=== PATIENT | male | born 1940 | race Caucasian/White ===

== ENCOUNTER 2018-06-19 06:30 | Observation (INO) | payer MEDICARE ==
[2018-06-18 09:01] LABS: BASOPHILS % 0.4 % (0.0-1.0); EOSINOPHILS # (AUTO) 0.2 (0.0-0.4); EOSINOPHILS % 1.9 % (0.0-6.0); HEMATOCRIT 34.8 % (38.2-49.6); HEMOGLOBIN 11.4 g/dL (14.0-18.0); LYMPHOCYTES # (AUTO) 2.3 (1.0-3.2); LYMPHOCYTES % 21.8 % (18.0-39.1); MEAN CORPUSCULAR HEMOGLOBIN 30.6 pg (28-32); MEAN CORPUSCULAR HGB CONC 32.8 g/dL (31-35); MEAN CORPUSCULAR VOLUME 93.3 fL (81-99); MONOCYTES # (AUTO) 0.7 (0.2-0.8); MONOCYTES % 6.8 % (4.4-11.3); NEUTROPHILS # (AUTO) 7.1 (2.1-6.9); NEUTROPHILS % 68.2 % (38.7-80.0); PLATELET COUNT 254 x10e3/uL (140-360); RED BLOOD COUNT 3.73 x10e6/uL (4.3-5.7)
[2018-06-18 09:19] LABS: ANION GAP 13.5 mmol/L (8-16); BLOOD UREA NITROGEN 29 mg/dL (7-26); BUN/CREATININE RATIO 26 (6-25); CALCIUM 9.8 mg/dL (8.4-10.2); CARBON DIOXIDE 25 mmol/L (22-29); CHLORIDE 106 mmol/L (98-107); CREATININE, SERUM 1.11 mg/dL (0.72-1.25); EST GLOMERULAR FILTRATION RATE > 60 ML/MIN (60-); GLUCOSE 80 mg/dL (74-118); POTASSIUM 4.5 mmol/L (3.5-5.1); SODIUM 140 mmol/L (136-145)
--- NOTE | 2018-06-18 09:22 | Diagnostic Imaging Report ---
PROCEDURE: X-RAY CHEST, TWO VIEWS COMPARISON: None. INDICATIONS: pre-operative chest/urinary retention FINDINGS: LUNGS: No consolidations or edema. PLEURA: No effusions or pneumothorax. HEART \T\ MEDIASTINUM: The heart is within normal size-limits. BONES \T\ SOFT TISSUES: No acute findings. CONCLUSION: No acute thoracic abnormality. Dictated by: Gregg Avila M.D. on 06/18/2018 at 9:28 Electronically approved by: Gregg Avila M.D. on 06/18/2018 at 9:28
[~2018-06-19] VITALS: Ht 172.7 cm; Wt 81.2 kg
[~2018-06-19 06:30] MED LIST: GABAPENTIN300 MG PO; HUMALOG100 UNIT/2 SQ; K-DUR20 ME2; LANTUS100 UNIT/2 SQ; LISINOPRIL10 MG PO; Z.0.AMLODIPINE BESYL PO; Z.0.FUROSEMIDE40 MG PO; Z.0.LOSARTAN POTAS10 PO; Z.0.METOPROLOL TART5 PO; Z.0.PLAVIX75 MG PO; Z.0.PRAVASTATIN SOD2 PO; Z.1.METFORMIN HCL100 PO
[2018-06-19] MEDS ORDERED: CEFTRIAXONE SOD 1 GM VIAL ONE (07:07)
[2018-06-19] MEDS ORDERED: DEXTROSE 5% 250ML 250 ML IV ONE (07:38)
[2018-06-19] MEDS ORDERED: FENTANYL CITRATE/PF 100MCG/2 ML INJ ONE ×2 (11:20→17:46)
[2018-06-19] MEDS ORDERED: ACETAMINOPHEN/CODEINE 300MG - 30MG TAB PO PRN ×2 (13:15→13:45)
[2018-06-19] MEDS: SODIUM CHLORIDE 0.45% 1,000 ML IV SCH ×3 (13:50→23:28)
[2018-06-19 15:00] VITALS: BP 135/88
[2018-06-19] MEDS ORDERED: LANTUS 3ML100 UNITS/ SQ (15:00)
[2018-06-19] MEDS ORDERED: HUMALOG100 UNIT/3 SQ (15:00)
[2018-06-19] MEDS ORDERED: SEVOFLURANE INHAL SOLN 250 ML PEN BTL ONE (17:35)
[2018-06-19] MEDS ORDERED: LIDOCAINE HCL 2% LOCAL INJ 5 ML SDV VIAL INJ ONE (17:35)
[2018-06-19] MEDS ORDERED: DEXAMETHASONE SOD PHOS INJ 4 MG/ML VIAL ONE (17:35)
[2018-06-19] MEDS ORDERED: ONDANSETRON HCL INJ 2 MG/ML VIAL ONE (17:35)
[2018-06-19] MEDS ORDERED: GLYCOPYRROLATE INJ 1MG/ 5 ML SYR ONE (17:35)
[2018-06-19] MEDS ORDERED: PROPOFOL IV EMULSION 10 MG/ML 20 ML VIAL ONE (17:35)
[2018-06-19] MEDS ORDERED: EPHEDRINE SULFATE INJ 50 MG/10 ML SYR ONE (17:35)
[2018-06-19] MEDS ORDERED: PHENYLEPHRINE HCL 1% 10 MG/ML VIAL ONE (17:35)
[2018-06-19] MEDS ORDERED: MIDAZOLAM HCL 2 MG/2 ML VIAL ONE (17:46)
[2018-06-19 17:58] VITALS: BP 147/67
[2018-06-19] MEDS ORDERED: DEXTROSE 50% SYRINGE 50 ML IV PRN (18:15)
[2018-06-19] MEDS: METFORMIN HCL 500 MG TAB PO SCH (18:37)
[2018-06-19 20:00] VITALS: BP 152/68
[2018-06-19 20:06] VITALS: BP 147/67
[2018-06-19] MEDS ORDERED: INSULIN DETEMIR 100 UNIT/ML PEN SQ SCH (21:00)
[2018-06-19] MEDS ORDERED: INSULIN LISPRO 100 UNIT/1 ML 3ML VIAL SQ SCH (21:00)
[2018-06-19] MEDS: TRIMETHOPRIM/SULFAMETHOXAZOLE 160-800 MG TAB PO SCH (21:53)
[2018-06-19] MEDS: INSULIN DETEMIR 100 UNIT/ML PEN SQ SCH (21:54)
[2018-06-19] MEDS: PRAVASTATIN 20 MG TAB PO SCH (21:54)
[2018-06-19] MEDS: INSULIN LISPRO 100 UNIT/1 ML 3ML VIAL SQ SCH (21:54)
[2018-06-20] VITALS (7 sets, daily range): BP systolic 113–167; BP diastolic 57–102
[2018-06-20 06:03] LABS: ANION GAP 11.8 mmol/L (8-16); BLOOD UREA NITROGEN 25 mg/dL (7-26); BUN/CREATININE RATIO 24 (6-25); CARBON DIOXIDE 24 mmol/L (22-29); CHLORIDE 110 mmol/L (98-107); CREATININE, SERUM 1.04 mg/dL (0.72-1.25); EST GLOMERULAR FILTRATION RATE > 60 ML/MIN (60-); GLUCOSE 64 mg/dL (74-118); POTASSIUM 3.8 mmol/L (3.5-5.1); SODIUM 142 mmol/L (136-145)
[2018-06-20] MEDS: INSULIN LISPRO 100 UNIT/1 ML 3ML VIAL SQ SCH ×4 (07:30→21:00)
[2018-06-20] MEDS: METFORMIN HCL 500 MG TAB PO SCH ×2 (08:50→17:11)
[2018-06-20] MEDS: GABAPENTIN 300 MG CAP PO SCH ×2 (08:50→17:11)
[2018-06-20] MEDS: AMLODIPINE BESYLATE 5 MG TAB PO SCH (08:50)
[2018-06-20] MEDS: LISINOPRIL 10 MG TAB PO SCH (08:50)
[2018-06-20] MEDS: LOSARTAN POTASSIUM 100 MG TAB PO SCH (08:50)
[2018-06-20] MEDS: TRIMETHOPRIM/SULFAMETHOXAZOLE 160-800 MG TAB PO SCH ×2 (08:50→21:20)
[2018-06-20] MEDS: SODIUM CHLORIDE 0.45% 1,000 ML IV SCH (08:51)
[2018-06-20] MEDS ORDERED: LOSARTAN POTASSIUM 100 MG TAB PO SCH (09:00)
--- NOTE | 2018-06-20 14:31 | Operative Report ---
DATE OF PROCEDURE: June 19, 2018 PREOPERATIVE DIAGNOSIS: Urinary retention. POSTOPERATIVE DIAGNOSIS: Urinary retention. PROCEDURES PERFORMED 1. Cystoscopy. 2. Transurethral resection of the prostate. ANESTHESIA: General anesthesia. ESTIMATED BLOOD LOSS: Minimal. INDICATIONS: Mr. Jillian Alarcon is a 77-year-old gentleman who recently went into urinary retention. He has failed conservative therapy despite maximal medical therapy. He now presents for definitive surgical management of this problem. PROCEDURE IN DETAIL: The patient was brought into the operating room and placed in the supine position and, after the administration of general anesthesia, was placed in the dorsal lithotomy position and prepped and draped in the usual sterile fashion. Cystourethroscopy was performed using a 21-Cambodian cystoscope. The anterior and posterior urethrae were noted to be normal. The prostate was enlarged without trilobar hyperplasia. The bladder was entered without difficulty. Upon entrance into the bladder, the ureteral orifices were in their normal anatomical position and produced clear efflux. The bladder revealed evidence of grade 3 trabeculations with cellules and diverticula noted throughout. There were no mucosal lesions identified but edema and erythema noted in the trigone and the roof of the bladder from the Mcgowan balloon. The bladder was left full, and the cystoscope and the sheath were removed. A 26-Cambodian resectoscope sheath was then placed in a retrograde fashion, and the Gigathlete resectoscope was used to perform the procedure. Beginning at the 1 o'clock position and proceeding in a clockwise fashion down to the 6 o'clock position, all of the adenomatous tissue between the bladder neck and the veru was resected down to the level of the surgical capsule. Hemostasis was obtained using electrocautery device. There was no gross penetration or perforation of the capsule noted on this or the contralateral side. Beginning at the 11 o'clock position and proceeding in a counterclockwise fashion on the contralateral side, all the adenomatous tissue was then resected down to the surgical capsule from the bladder neck to the veru until the 6 o'clock position. The residual tissue noted at the roof and floor of the gland were leveled out, and the [employer] evacuator was used to remove all chips. These were sent to pathology for microscopic analysis. Once adequate hemostasis was secured, the bladder was left full and the resectoscope and the sheath were removed. The patient was noted to have a brisk urinary flow with coude. A 24-Cambodian 3-way coude catheter was then placed in a retrograde fashion and the balloon inflated with approximately 50 mL of sterile water. The urinary efflux was noted to be blood-tinged. The patient was started on continuous bladder irrigation, and he was returned to the supine position. Anesthesia was reversed, and he was transferred to a bed and taken to the postanesthesia care unit in good condition. Of note, the needle and instrument count was correct at the conclusion of the case. Job#: [id number]
[2018-06-20] MEDS ORDERED: ACETAMINOPHEN 325 MG TAB PO PRN ×2 (16:00→20:00)
[2018-06-20] MEDS ORDERED: INSULIN LISPRO 100 UNIT/1 ML 3ML VIAL SQ SCH (16:30)
[2018-06-20] MEDS: INSULIN DETEMIR 100 UNIT/ML PEN SQ SCH (21:00)
[2018-06-20] MEDS: PRAVASTATIN 20 MG TAB PO SCH (21:10)
[2018-06-21] VITALS: BP 107/58
[2018-06-21 04:00] VITALS: BP 112/64
[2018-06-21] MEDS: SODIUM CHLORIDE 0.45% 1,000 ML IV SCH (05:04)
[2018-06-21 07:20] VITALS: BP 115/57
[2018-06-21] MEDS: INSULIN LISPRO 100 UNIT/1 ML 3ML VIAL SQ SCH ×2 (07:30→11:30)
[2018-06-21] MEDS: METFORMIN HCL 500 MG TAB PO SCH (08:15)
[2018-06-21 08:24] VITALS: BP 115/57
[2018-06-21] MEDS: LOSARTAN POTASSIUM 100 MG TAB PO SCH (09:00)
[2018-06-21] MEDS: LISINOPRIL 10 MG TAB PO SCH (09:00)
[2018-06-21] MEDS: AMLODIPINE BESYLATE 5 MG TAB PO SCH (09:00)
[2018-06-21] MEDS: TRIMETHOPRIM/SULFAMETHOXAZOLE 160-800 MG TAB PO SCH (09:30)
[2018-06-21] MEDS: GABAPENTIN 300 MG CAP PO SCH (09:30)
[2018-06-21 11:38] VITALS: BP 114/56
== END 2018-06-21 14:00 | disposition home or self-care (01) ==
LOC: OR 06:30 → PACU V 09:37 → MED/SURG 12:00
PROVIDERS: ADMIT Urology; ATTEND Urology
DX: R33.9 Retention of urine, unspecified (principal); G47.33 Obstructive sleep apnea (adult) (pediatric); I10 Essential (primary) hypertension; Z95.1 Presence of aortocoronary bypass graft; I25.10 Atherosclerotic heart disease of native coronary artery without angina pectoris; I73.9 Peripheral vascular disease, unspecified; E11.9 Type 2 diabetes mellitus without complications; C85.90 Non-Hodgkin lymphoma, unspecified, unspecified site
CPT/HCPCS: 36415 ×4; 52630; 71046; 80048 ×2; 82948 ×3; 85025; 86850; 86900; 88300; 88305; 93005; G0378 ×3; J0696; J1100; J2001; J2250; J2370; J2405; J3490

== ENCOUNTER 2018-07-16 09:18 | Emergency (ER) | payer MEDICARE ==
[~2018-07-16] VITALS: Ht 172.7 cm; Wt 81.6 kg
[~2018-07-16 09:18] MED LIST changes: +HUMALOG100 UNIT/3 SQ; +LANTUS 3ML100 UNITS/ SQ
[2018-07-16 10:06] LABS: BASOPHILS % 0.3 % (0.0-1.0); EOSINOPHILS # (AUTO) 0.1 (0.0-0.4); EOSINOPHILS % 1.3 % (0.0-6.0); HEMATOCRIT 34.3 % (38.2-49.6); HEMOGLOBIN 11.6 g/dL (14.0-18.0); LYMPHOCYTES # (AUTO) 2.1 (1.0-3.2); LYMPHOCYTES % 20.4 % (18.0-39.1); MEAN CORPUSCULAR HEMOGLOBIN 31.5 pg (28-32); MEAN CORPUSCULAR HGB CONC 33.8 g/dL (31-35); MEAN CORPUSCULAR VOLUME 93.2 fL (81-99); MONOCYTES # (AUTO) 0.4 (0.2-0.8); MONOCYTES % 4.3 % (4.4-11.3); NEUTROPHILS # (AUTO) 7.4 (2.1-6.9); NEUTROPHILS % 73.2 % (38.7-80.0); PLATELET COUNT 216 x10e3/uL (140-360); RED BLOOD COUNT 3.68 x10e6/uL (4.3-5.7); RED CELL DISTRIBUTION WIDTH 13.3 % (11.7-14.4)
[2018-07-16 10:18] LABS: INR 0.91; PROTHROMBIN TIME 13.1 seconds (11.9-14.5)
[2018-07-16 10:19] LABS: PARTIAL THROMBOPLASTIN TIME 25.1 seconds (23.8-35.5)
[2018-07-16] MEDS ORDERED: ONDANSETRON HCL INJ 2 MG/ML VIAL IV STA (10:27)
[2018-07-16] MEDS ORDERED: HYDROMORPHONE 1MG/1ML INJ IV STA (10:27)
[2018-07-16] MEDS ORDERED: MORPHINE SULFATE INJ 4 MG/ML INJ IV ONE (10:30)
[2018-07-16 10:46] LABS: ALANINE AMINOTRANSFERASE 7 IU/L (0-55); ALBUMIN 3.5 g/dL (3.5-5.0); ALBUMIN/GLOBULIN RATIO 1.3 (0.8-2.0); ALKALINE PHOSPHATASE 51 IU/L (40-150); BLOOD UREA NITROGEN 20 mg/dL (7-26); BUN/CREATININE RATIO 18 (6-25); CALCIUM 9.4 mg/dL (8.4-10.2); CARBON DIOXIDE 20 mmol/L (22-29); CHLORIDE 105 mmol/L (98-107); CREATININE, SERUM 1.09 mg/dL (0.72-1.25); EST GLOMERULAR FILTRATION RATE > 60 ML/MIN (60-); GLUCOSE 237 mg/dL (74-118); SODIUM 139 mmol/L (136-145)
[2018-07-16] MEDS ORDERED: LIDOCAINE JELLY 2% 10ML URO-JET TOP ONE (11:00)
[2018-07-16] MEDS ORDERED: HYDROMORPHONE 2MG/ML 2 MG/ML ML IV ONE (11:00)
[2018-07-16 11:58] LABS: CLARITY,URINE TURBID (CLEAR); COLOR,URINE RED (YELLOW); LEUKOCYTE ESTERASE ,URINE NEGATIVE (NEGATIVE); NITRITE,URINE NEGATIVE (NEGATIVE)
[2018-07-16 11:59] LABS: BILIRUBIN,URINE NEGATIVE (NEGATIVE); KETONES,URINE NEGATIVE (NEGATIVE); PROTEIN,URINE DIPSTICK 3+ (NEGATIVE); URINE UROBILINOGEN 0.2 mg/dL (0.2 - 1)
[2018-07-16 12:06] LABS: RBC,URINE >50 /HPF (0-5)
[2018-07-16 17:06] VITALS: BP 141/73
== END 2018-07-16 17:23 | disposition home or self-care (01) ==
LOC: ER 09:18
DX: R33.9 Retention of urine, unspecified (principal); R31.0 Gross hematuria; R10.30 Lower abdominal pain, unspecified; N40.1 Benign prostatic hyperplasia with lower urinary tract symptoms; E11.65 Type 2 diabetes mellitus with hyperglycemia; I10 Essential (primary) hypertension; I25.10 Atherosclerotic heart disease of native coronary artery without angina pectoris; I73.9 Peripheral vascular disease, unspecified; E78.5 Hyperlipidemia, unspecified; Z95.1 Presence of aortocoronary bypass graft; Z87.891 Personal history of nicotine dependence
CPT/HCPCS: 36415; 51703; 80053; 81001; 85025; 85610; 85730; 87086; 99284; J1170; J2270; J2405